=== PATIENT | female | born 1955 | race Caucasian/White ===

== ENCOUNTER 2017-05-05 09:04 | Outpatient (CLI) | payer BC ==
--- NOTE | 2017-05-05 11:56 | MMO ---
BILATERAL SCREENING MAMMOGRAM: Date: 05/05/17 INDICATION: Annual exam. COMPARISON: Prior exams dated 03/24/16, 01/27/15, and 01/03/14. FINDINGS: Interpretation of this exam was assisted with computer-aided detection. There are scattered fibroglandular elements bilaterally. No suspicious mass, cluster of microcalcifications, or area of architectural distortion is evident. IMPRESSION: BIRADS 1: Negative Recommend routine annual mammographic screening. POS: [facility]
== END 2017-05-05 09:05 | disposition home or self-care (01) ==
LOC: SCSMAMMO 09:04
PROVIDERS: ATTEND Internal Medicine
DX: Z12.31 Encounter for screening mammogram for malignant neoplasm of breast (principal)
CPT/HCPCS: 77067; G0202

== ENCOUNTER 2018-06-14 09:40 | Outpatient (CLI) | payer BC ==
--- NOTE | 2018-06-14 11:17 | MMO ---
BILATERAL MAMMOGRAMS: HISTORY: Screening mammography. COMPARISON: Multiple exams, back to 01/15/2013. FINDINGS: Scattered fibroglandular densities and benign appearing calcifications. No dominant mass or suspicio us calcifications. The study was evaluated with the assistance of computer aided detection. IMPRESSION: BI-RADS Category 1-Negative. Suggest routine followup. POS: [facility]
== END 2018-06-14 09:41 | disposition home or self-care (01) ==
LOC: SCSMAMMO 09:40
PROVIDERS: ATTEND Obstetrics & Gynecology
DX: Z12.31 Encounter for screening mammogram for malignant neoplasm of breast (principal)
CPT/HCPCS: 77067